=== PATIENT | female | born 1950 | race Caucasian/White ===

== ENCOUNTER → 2021-01-20 | Day surgery (SDC) | payer OTHER, BC | END | disposition home or self-care (01) | LOC: JRADUS-SUR 12:44 | PROVIDERS: ATTEND Surgery Surgical Oncology | PROC: 0H9U3ZX Drainage of Left Breast, Percutaneous Approach, Diagnostic (ICD-10-PCS; principal; 2021-01-20) | DX: C50.912 Malignant neoplasm of unspecified site of left female breast (principal) | CPT/HCPCS: 19083; 19084; 77065-TC; 87899; A4648 ==

== ENCOUNTER 2022-09-07 07:52 | Day surgery (SDC) | payer OTHER, BC ==
[2022-08-31 11:10] VITALS: BMI 25.4
[2022-09-07] MEDS ORDERED: PROPOFOL 120 ML ONE (07:57)
[2022-09-07 09:21] VITALS: RESP 16; TEMP 98
[2022-09-07 10:08] VITALS: BP 128/74; PULSE 72
== END 2022-09-07 10:09 | disposition home or self-care (01) ==
LOC: FASU-ENDO 07:52
PROVIDERS: ATTEND Internal Medicine Gastroenterology
PROC: 0DJD8ZZ Inspection of Lower Intestinal Tract, Via Natural or Artificial Opening Endoscopic (ICD-10-PCS; principal; 2022-09-07 09:05)
DX: Z12.11 Encounter for screening for malignant neoplasm of colon (principal); K57.30 Diverticulosis of large intestine without perforation or abscess without bleeding